=== PATIENT | male | born 1990 | race Caucasian/White ===

== ENCOUNTER 2017-10-05 23:05 | Emergency (ER) | payer BC, OTHER ==
[2017-10-06] MEDS: IBUPROFEN 600 MG TAB PO (04:48)
[2017-10-06] MEDS: ACETAMINOPHEN 325 MG TAB PO (04:49)
[2017-10-06] MEDS: HYDROCODONE/APAP (5/325) TAB PO (04:49)
== END 2017-10-06 06:00 | disposition home or self-care (01) ==
LOC: FTE 23:05
DX: J02.0 Streptococcal pharyngitis (principal); F17.210 Nicotine dependence, cigarettes, uncomplicated
CPT/HCPCS: 99283